=== PATIENT | female | born 1930 | race Caucasian/White ===

== ENCOUNTER → 2016-12-27 | Outpatient (CLI) | payer MEDICARE, OTHER ==
[~2016-12-27] MED LIST: ASPIRIN 32325 MG/TAB PO; ASPIRIN E.C. 8181 MG PO; ATIVAN 1MG T1 MG/TAB PO; CALCIUM + D 5001 TAB PO; CARDI-OMEGA1000 MG PO; CENTRUM SILVER1 CTB PO; COLACE100 MG/10 PO; COREG 6.256.25 MG/TA PO; DIOVAN80 MG PO; FLAX OIL1000 MG PO; IMDUR 60MG60 MG/TAB PO; KEPPRA 500MG500 MG PO; LIQUID CAL-600600 MG PO; LIVALO2 MG PO; LORAZEPAM0.5 MG PO; MULTI VITAMINS1 TAB PO; NIACIN500 M3 PO; NITROSTAT0.4 MG/TAB SL; NORVASC2.5 MG PO; OMEPRAZOLE DR20 MG PO; PLAVIX 75MG TAB75 MG PO; VITAMIN D3400 I1 PO; XALATAN EYE DROPS OU; ZANTAC 150MG T150 MG PO
== END ==
LOC: MC.RAD 12:47
DX: Z12.31 Encounter for screening mammogram for malignant neoplasm of breast (principal)

== ENCOUNTER 2017-05-14 10:58 | Emergency (ER) | payer MEDICARE, OTHER ==
[~2017-05-14] VITALS: Ht 152.4 cm; Wt 52.3 kg
[~2017-05-14 10:58] MED LIST changes: -KEPPRA 500MG500 MG PO; -MULTI VITAMINS1 TAB PO; -NORVASC2.5 MG PO; -VITAMIN D3400 I1 PO
[2017-05-14 10:59] VITALS: TEMP 97.8
[2017-05-14] MEDS ORDERED: NORVASC2.5 MG PO (11:26)
[2017-05-14 13:04] LABS: BASO # 0.1 (0.0-0.2); BASO % 0.6 % (0.0-2.0); EOS # 0.2 (0.0-0.7); EOS % 2.7 % (0-4.0); GRAN # 5.9 (1.4-6.5); GRAN % 70.9 % (42.2-75.2); HEMATOCRIT 38.5 % (37.0-47.0); HEMOGLOBIN 13.2 g/dl (12.5-16.0); LYMPH # 1.4 (1.2-3.4); LYMPH % 17.1 % (20.0-51.0); MEAN CELL VOLUME 86 fl (80.0-100.0); MEAN CORPUSCULAR HEMOGLOBIN 30 pg (27.0-31.0); MEAN CORPUSCULAR HGB CONC 34 g/dl (33.0-37.0); MEAN PLATELET VOLUME 10.3 fl (7.4-10.4); MONO # 0.7 (0.1-0.6); MONO % 8.3 % (1.7-9.3); PLATELET COUNT 163 K/mm3 (130-400); RED BLOOD COUNT 4.48 M/mm3 (4.10-5.30); REDCELL DISTRIBUTION WIDTH-CV 13.9 % (11.5-14.5); WHITE BLOOD COUNT 8.3 K/mm3 (4.8-10.8)
[2017-05-14 13:15] LABS: PROTHROMBIN TIME 11.3 SECONDS (9.7-12.8)
[2017-05-14 13:23] LABS: ADJUSTED CALCIUM 9.4 mg/dL (8.4-10.2); ALBUMIN 4.5 gm/dL (3.5-5.0); BILIRUBIN,TOTAL 0.9 mg/dL (0.0-1.0); CALCIUM 9.8 mg/dL (8.4-10.2); CREATININE, serum 1.24 mg/dL (0.52-1.25); POTASSIUM 4.7 mmol/L (3.4-5.0); TOTAL PROTEIN 7.2 gm/dL (6.4-8.2)
[2017-05-14 13:55] VITALS: BP 186/93; PULSE 73
== END 2017-05-14 13:55 | disposition short-term general hospital (02) ==
LOC: COL.ER 10:58
PROVIDERS: Emergency Medicine
DX: S06.5X0A Traumatic subdural hemorrhage without loss of consciousness, initial encounter (principal); S72.115A Nondisplaced fracture of greater trochanter of left femur, initial encounter for closed fracture; S00.212A Abrasion of left eyelid and periocular area, initial encounter; S00.81XA Abrasion of other part of head, initial encounter; S60.212A Contusion of left wrist, initial encounter; I25.10 Atherosclerotic heart disease of native coronary artery without angina pectoris; Z95.1 Presence of aortocoronary bypass graft; I25.2 Old myocardial infarction; W10.8XXA Fall (on) (from) other stairs and steps, initial encounter; Y92.511 Restaurant or cafe as the place of occurrence of the external cause; Z79.02 Long term (current) use of antithrombotics/antiplatelets; E11.9 Type 2 diabetes mellitus without complications; Z79.82 Long term (current) use of aspirin; Z23 Encounter for immunization
CPT/HCPCS: J2405; J3010; J7040

== ENCOUNTER 2017-06-25 10:19 | Emergency (ER) | payer MEDICARE, OTHER ==
[~2017-06-25] VITALS: Ht 152.4 cm; Wt 49.1 kg
[~2017-06-25 10:19] MED LIST changes: +NORVASC2.5 MG PO
[2017-06-25] MEDS ORDERED: MULTI VITAMINS1 TAB PO (11:05)
[2017-06-25] MEDS ORDERED: VITAMIN D3400 I1 PO (11:34)
[2017-06-25] MEDS ORDERED: KEPPRA 500MG500 MG PO (11:35)
[2017-06-25 11:38] LABS: PH 7 (5-8); SQUAMOUS EPITHELIAL 0-2 /hpf; URINE APPEARANCE Clear; URINE BACTERIA None Seen /hpf; URINE BILIRUBIN Negative (NEGATIVE); URINE BLOOD Negative (NEGATIVE); URINE COLOR Yellow; URINE GLUCOSE Negative (NEGATIVE); URINE KETONE Negative (NEGATIVE); URINE RBC 0-2 /hpf; URINE UROBILINOGEN Negative (NEGATIVE); URINE WBC 0-2 /hpf
[2017-06-25 12:07] LABS: BASO % 0.5 % (0.0-2.0); EOS # 0.2 (0.0-0.7); EOS % 2.9 % (0-4.0); GRAN # 3.6 (1.4-6.5); GRAN % 61.4 % (42.2-75.2); HEMOGLOBIN 12.4 g/dl (12.5-16.0); LYMPH # 1.5 (1.2-3.4); LYMPH % 25.3 % (20.0-51.0); MEAN CELL VOLUME 86 fl (80.0-100.0); MEAN CORPUSCULAR HEMOGLOBIN 29 pg (27.0-31.0); MEAN CORPUSCULAR HGB CONC 34 g/dl (33.0-37.0); MEAN PLATELET VOLUME 10.5 fl (7.4-10.4); MONO # 0.5 (0.1-0.6); MONO % 9.2 % (1.7-9.3); PLATELET COUNT 191 K/mm3 (130-400); REDCELL DISTRIBUTION WIDTH-CV 15.4 % (11.5-14.5); WHITE BLOOD COUNT 5.8 K/mm3 (4.8-10.8)
[2017-06-25 12:08] LABS: PROTHROMBIN TIME 11.2 SECONDS (9.7-12.8)
[2017-06-25 12:10] LABS: PARTIAL THROMBOPLASTIN TIME 31.1 SECONDS (26.0-37.0)
[2017-06-25 12:15] LABS: ADJUSTED CALCIUM 9.6 mg/dL (8.4-10.2); ALANINE AMINOTRANSFERASE 24 U/L (9-52); ALBUMIN 4.4 gm/dL (3.5-5.0); ALKALINE PHOSPHATASE 58 U/L (50-136); ANION GAP 11 mmol/L (7-16); BILIRUBIN,TOTAL 0.8 mg/dL (0.0-1.0); BLOOD UREA NITROGEN 12 mg/dL (7-17); CALCIUM 9.9 mg/dL (8.4-10.2); CARBON DIOXIDE 24 mmol/L (22-30); CHLORIDE 97 mmol/L (98-107); CREATININE, serum 0.89 mg/dL (0.52-1.25); GLUCOSE 103 mg/dL (74-106); POTASSIUM 4.3 mmol/L (3.4-5.0); SODIUM 131 mmol/L (137-145); TOTAL PROTEIN 7.2 gm/dL (6.4-8.2)
[2017-06-25 12:26] LABS: B-TYPE NATRIURETIC PEPTIDE 964 pg/mL (0-450); TROPONIN-I < 0.012 ng/mL (0.000-0.034)
[2017-06-25 13:25] VITALS: BP 146/125; PULSE 97; TEMP 97
== END 2017-06-25 13:35 | disposition short-term general hospital (02) ==
LOC: COL.ER 10:19
PROVIDERS: Emergency Medicine
DX: I62.01 Nontraumatic acute subdural hemorrhage (principal); R07.89 Other chest pain; I25.10 Atherosclerotic heart disease of native coronary artery without angina pectoris; R07.9 Chest pain, unspecified; I10 Essential (primary) hypertension; Z79.02 Long term (current) use of antithrombotics/antiplatelets; S06.5X0D Traumatic subdural hemorrhage without loss of consciousness, subsequent encounter; X58.XXXD Exposure to other specified factors, subsequent encounter
CPT/HCPCS: J1953; J7050; P9035

== ENCOUNTER → 2017-10-10 | Outpatient (CLI) | payer MEDICARE, OTHER ==
[~2017-10-10] MED LIST changes: +KEPPRA 500MG500 MG PO; +MULTI VITAMINS1 TAB PO; +VITAMIN D3400 I1 PO
== END ==
LOC: COL.CARD 08:14
DX: R55 Syncope and collapse (principal); Z53.9 Procedure and treatment not carried out, unspecified reason

== ENCOUNTER → 2018-02-16 | Outpatient (CLI) | payer MEDICARE, OTHER | LOC: MC.RAD 10:43 | DX: Z12.31 Encounter for screening mammogram for malignant neoplasm of breast (principal) ==

== ENCOUNTER 2018-10-22 04:13 | Emergency (ER) | payer MEDICARE, OTHER ==
[~2018-10-22] VITALS: Ht 152.4 cm; Wt 51.4 kg
[2018-10-22 04:15] VITALS: TEMP 97.8
[2018-10-22 04:37] LABS: BASO # 0.1 (0.0-0.2); BASO % 0.8 % (0.0-2.0); EOS # 0.2 (0.0-0.7); EOS % 3.4 % (0-4.0); GRAN # 3.6 (1.4-6.5); GRAN % 55.1 % (42.2-75.2); HEMOGLOBIN 13.8 g/dl (12.5-16.0); LYMPH # 1.8 (1.2-3.4); MEAN CELL VOLUME 91 fl (80.0-100.0); MEAN CORPUSCULAR HEMOGLOBIN 31 pg (27.0-31.0); MEAN CORPUSCULAR HGB CONC 35 g/dl (33.0-37.0); MEAN PLATELET VOLUME 9.6 fl (7.4-10.4); MONO # 0.8 (0.1-0.6); MONO % 12.2 % (1.7-9.3); PLATELET COUNT 147 K/mm3 (130-400); RED BLOOD COUNT 4.42 M/mm3 (4.10-5.30); REDCELL DISTRIBUTION WIDTH-CV 13.2 % (11.5-14.5)
[2018-10-22 04:44] LABS: PROTHROMBIN TIME 11.1 SECONDS (9.7-12.8)
[2018-10-22 04:47] LABS: PARTIAL THROMBOPLASTIN TIME 31.4 SECONDS (26.0-37.0)
[2018-10-22 04:48] LABS: CALCIUM 10.1 mg/dL (8.4-10.2); CREATININE, serum 1.03 mg/dL (0.52-1.25); POTASSIUM 4.2 mmol/L (3.4-5.0)
[2018-10-22] MEDS ORDERED: AMOXICILLIN 50500 MG PO (04:50)
[2018-10-22 05:58] VITALS: BP 175/96; PULSE 75
== END 2018-10-22 05:59 | disposition home or self-care (01) ==
LOC: COL.ER 04:13
PROVIDERS: Emergency Medicine
DX: S09.90XA Unspecified injury of head, initial encounter (principal); S00.03XA Contusion of scalp, initial encounter; I25.10 Atherosclerotic heart disease of native coronary artery without angina pectoris; Z79.02 Long term (current) use of antithrombotics/antiplatelets; W18.39XA Other fall on same level, initial encounter; W22.8XXA Striking against or struck by other objects, initial encounter

== ENCOUNTER 2019-06-02 23:30 | Observation (INO) | payer MEDICARE, OTHER ==
[~2019-06-02] VITALS: Ht 152.4 cm; Wt 50.9 kg
[~2019-06-02 23:30] MED LIST changes: +AMOXICILLIN 50500 MG PO
[2019-06-02] MEDS ORDERED: VITAMIN D31000 I1 PO (23:42)
[2019-06-02] MEDS ORDERED: ZANTAC 7575 MG PO (23:42)
[2019-06-02] MEDS ORDERED: OMEGA-3 1000 MG1 CAP PO (23:42)
[2019-06-03] VITALS (7 sets, daily range): BP systolic 114–187; BP diastolic 42–76; PULSE 62–73; TEMP 97.4–98.3
[2019-06-03 00:07] LABS: BASO # 0.1 (0.0-0.2); BASO % 0.7 % (0.0-2.0); EOS # 0.4 (0.0-0.7); EOS % 4.5 % (0-4.0); GRAN # 6.3 (1.4-6.5); GRAN % 71.9 % (42.2-75.2); HEMOGLOBIN 12.9 g/dl (12.5-16.0); LYMPH # 1.5 (1.2-3.4); LYMPH % 16.7 % (20.0-51.0); MEAN CELL VOLUME 86 fl (80.0-100.0); MEAN CORPUSCULAR HEMOGLOBIN 31 pg (27.0-31.0); MEAN CORPUSCULAR HGB CONC 36 g/dl (33.0-37.0); MEAN PLATELET VOLUME 8.8 fl (7.4-10.4); MONO # 0.5 (0.1-0.6); MONO % 5.6 % (1.7-9.3); PLATELET COUNT 152 K/mm3 (130-400); REDCELL DISTRIBUTION WIDTH-CV 12.7 % (11.5-14.5)
[2019-06-03 00:19] LABS: ALBUMIN 3.9 gm/dL (3.5-5.0); BILIRUBIN,TOTAL 0.6 mg/dL (0.0-1.0); CALCIUM 9.4 mg/dL (8.4-10.2); CREATININE, serum 0.86 (0.52-1.25); POTASSIUM 4.6 mmol/L (3.4-5.0); TOTAL PROTEIN 6.5 gm/dL (6.4-8.2)
[2019-06-03 00:46] LABS: PROTHROMBIN TIME 11.2 SECONDS (9.7-12.8)
[2019-06-03 02:36] LABS: COLLECTION METHOD CLEAN CATCH
[2019-06-03 02:51] LABS: PH 7 (5-8); SQUAMOUS EPITHELIAL 0-2 /hpf; URINE APPEARANCE Clear; URINE BACTERIA None Seen /hpf; URINE BILIRUBIN Negative (NEGATIVE); URINE BLOOD Negative (NEGATIVE); URINE COLOR Straw; URINE GLUCOSE Negative (NEGATIVE); URINE KETONE Negative (NEGATIVE); URINE LEUKOCYTE ESTERASE Negative (NEGATIVE); URINE NITRATE Negative (NEGATIVE); URINE PROTEIN(semi-quant) Negative (NEGATIVE); URINE RBC 0-2 /hpf; URINE UROBILINOGEN Negative (NEGATIVE)
--- NOTE | 2019-06-03 03:49 | NUR ---
PT TO RM 359 PER W/C WITH ER STAFF. ALERT AND ORIENTATED. DENIES PAIN. AMBULATES TO BR WITH SBA. VOIDED AND THEN TO BED. REQUESTING HER ATIVAN FOR SLEEP. INT IN L AC. CALL LIGHT IN REACH.
--- NOTE | 2019-06-03 06:08 | NUR ---
Pt up to BR. Steady gait. C/O back neck pain. States she usually takes Tylenol. Pain rated 4/10. IVF cont to infuse at 125mL/hr in L AC. Call light in reach.
[2019-06-03 07:35] LABS: BASO % 0.6 % (0.0-2.0); EOS # 0.3 (0.0-0.7); EOS % 4.8 % (0-4.0); GRAN # 3.5 (1.4-6.5); GRAN % 56.9 % (42.2-75.2); HEMOGLOBIN 12.3 g/dl (12.5-16.0); LYMPH # 1.7 (1.2-3.4); LYMPH % 27.8 % (20.0-51.0); MEAN CELL VOLUME 88 fl (80.0-100.0); MEAN CORPUSCULAR HEMOGLOBIN 31 pg (27.0-31.0); MEAN CORPUSCULAR HGB CONC 35 g/dl (33.0-37.0); MEAN PLATELET VOLUME 9.7 fl (7.4-10.4); MONO # 0.6 (0.1-0.6); MONO % 9.1 % (1.7-9.3); PLATELET COUNT 144 K/mm3 (130-400); RED BLOOD COUNT 4.01 M/mm3 (4.10-5.30); REDCELL DISTRIBUTION WIDTH-CV 12.9 % (11.5-14.5)
[2019-06-03 07:37] LABS: HEMATOCRIT 35.1 % (37.0-47.0)
[2019-06-03 07:41] LABS: CALCIUM 9.1 mg/dL (8.4-10.2); CREATININE, serum 0.82 (0.52-1.25); POTASSIUM 4.6 mmol/L (3.4-5.0)
--- NOTE | 2019-06-03 08:30 | NUR ---
Pt lying in bed, AAOx3, denies dizziness or shortness of breath. C/O pain 3/10 to neck muscle, says that is normal for her. Completed morning assessment. Pt has fluids going at 125ml/hr. Sodium up to 132 this AM. Will follow up with Dr. Singh. Breakfast tray ordered for pt, taught pt about free water restriction. Denies any other needs at this time. Call light in reach.
[2019-06-03 09:08] LABS: CHOLESTEROL RISK RATIO 3.5
--- NOTE | 2019-06-03 15:05 | NUR ---
Pt lying in bed, breathing even and unlabored. Pt requested tylenol, spoke with Silvia SMITH. Pt states she would like to take it in a couple hours. Will follow up. Call light in reach.
--- NOTE | 2019-06-03 15:09 | NUR ---
ADAM met with the patient to discuss discharge plan. The patient lives in [place]. She states her daughter, Shannon, lives in the basement of her house. She reports independence with ADLs and does not have any DME. The patient's PCP is Dr. Cat Gipson and she receives her medications at [facility]. She reports no difficulties obtaining her meds. The patient does not have advanced directives in EMR, but she states that she does have them completed and at home. She states her son, Dayton, is her DPOA-HC. The patient plans to return home upon discharge. No additional needs at this time.
--- NOTE | 2019-06-03 21:00 | NUR ---
PT IN ROOM AMBULATES TO BATHROOM AND BACK TO BED WITHOUT ASSISTANCE, BUT GAIT STEADY. PT A/O X4, AND DRINKING GATORAID AND SUPPLEMENT. PT DENIES PAIN OR DISCOMFORT AND HAS NO NEEDS AT THIS TIME. CALL LIGHT WITHIN REACH.
[2019-06-04 03:42] VITALS: BP 148/60; PULSE 73; TEMP 97.6
--- NOTE | 2019-06-04 07:09 | NUR ---
PT SLEPT/RESTED WELL DURING THE NIGHT. WHEN PT WAS AWAKENED SHE DENIED PAIN OR DISCOMFORT AND WAS ABLE TO DRIFT BACK TO SLEEP. NO NEEDS AND CALL LIGHT WITHIN REACH. CARE TRANSFERED OVER TO LUCI ROY.
[2019-06-04 07:20] VITALS: BP 155/63; PULSE 68; TEMP 97.6
[2019-06-04 08:07] LABS: CALCIUM 9.1 mg/dL (8.4-10.2); CREATININE, serum 0.87 (0.52-1.25); POTASSIUM 4.4 mmol/L (3.4-5.0)
--- NOTE | 2019-06-04 12:41 | NUR ---
Pt sitting up in bed watching TV upon entry, some C/O minor pain, medications given for relief, shift assessments complete, left Pt call light in reach, bed in lowest position.
--- NOTE | 2019-06-04 19:15 | NUR ---
Pt discharged to home, waiting on transport from family.
== END 2019-06-04 19:33 | disposition home or self-care (01) ==
LOC: COL.ER 23:30 → MEDICAL 06-03 00:46
PROVIDERS: Emergency Medicine; Nurse Practitioner; Nurse Practitioner Family; ADMIT Hospitalist
DX: E87.1 Hypo-osmolality and hyponatremia (principal); E78.5 Hyperlipidemia, unspecified; I73.9 Peripheral vascular disease, unspecified; I25.10 Atherosclerotic heart disease of native coronary artery without angina pectoris; I12.9 Hypertensive chronic kidney disease with stage 1 through stage 4 chronic kidney disease, or unspecified chronic kidney disease; E11.22 Type 2 diabetes mellitus with diabetic chronic kidney disease; N18.3 Chronic kidney disease, stage 3 (moderate); I70.1 Atherosclerosis of renal artery; Z79.02 Long term (current) use of antithrombotics/antiplatelets; Z95.1 Presence of aortocoronary bypass graft; Z95.5 Presence of coronary angioplasty implant and graft; Z88.8 Allergy status to other drugs, medicaments and biological substances
CPT/HCPCS: 99239; G0378; J1644; J7030

== ENCOUNTER 2019-06-17 17:04 | Inpatient (IN) | payer MEDICARE, OTHER ==
[~2019-06-17] VITALS: Ht 152.4 cm; Wt 46.4 kg
[~2019-06-17 17:04] MED LIST changes: +OMEGA-3 1000 MG1 CAP PO; +VITAMIN D31000 I1 PO; +ZANTAC 7575 MG PO
[2019-06-17] MEDS ORDERED: CLEOCIN HCL300 MG PO (17:19)
[2019-06-17] MEDS ORDERED: ZOFRAN ODT8 MG PO (17:20)
[2019-06-17 17:23] LABS: COLLECTION METHOD CLEAN CATCH
[2019-06-17 17:41] LABS: PH 8 (5-8); SQUAMOUS EPITHELIAL None Seen /hpf; URINE APPEARANCE Clear; URINE BACTERIA None Seen /hpf; URINE BILIRUBIN Negative (NEGATIVE); URINE BLOOD Negative (NEGATIVE); URINE COLOR Straw; URINE GLUCOSE Negative (NEGATIVE); URINE KETONE Negative (NEGATIVE); URINE LEUKOCYTE ESTERASE Negative (NEGATIVE); URINE NITRATE Negative (NEGATIVE); URINE PROTEIN(semi-quant) Negative (NEGATIVE); URINE RBC 0-2 /hpf; URINE UROBILINOGEN Negative (NEGATIVE)
[2019-06-17 18:08] LABS: BASO % 0.4 % (0.0-2.0); EOS # 0.1 (0.0-0.7); GRAN # 4.7 (1.4-6.5); GRAN % 67.6 % (42.2-75.2); HEMATOCRIT 40.9 % (37.0-47.0); HEMOGLOBIN 14.5 g/dl (12.5-16.0); LYMPH # 1.4 (1.2-3.4); LYMPH % 20.3 % (20.0-51.0); MEAN CELL VOLUME 85 fl (80.0-100.0); MEAN CORPUSCULAR HEMOGLOBIN 30 pg (27.0-31.0); MEAN CORPUSCULAR HGB CONC 36 g/dl (33.0-37.0); MEAN PLATELET VOLUME 9.6 fl (7.4-10.4); MONO # 0.6 (0.1-0.6); MONO % 9.3 % (1.7-9.3); PLATELET COUNT 187 K/mm3 (130-400); RED BLOOD COUNT 4.79 M/mm3 (4.10-5.30); REDCELL DISTRIBUTION WIDTH-CV 12.8 % (11.5-14.5)
[2019-06-17 18:12] LABS: PROTHROMBIN TIME 11.5 SECONDS (9.7-12.8)
[2019-06-17 18:19] LABS: ALANINE AMINOTRANSFERASE 20 U/L (9-52); ALBUMIN 4.6 gm/dL (3.5-5.0); ALKALINE PHOSPHATASE 58 U/L (50-136); ANION GAP 13 mmol/L (7-16); AST,SGOT 28 U/L (15-37); BILIRUBIN,TOTAL 0.8 mg/dL (0.0-1.0); BLOOD UREA NITROGEN 12 mg/dL (7-17); CALCIUM 10.1 mg/dL (8.4-10.2); CARBON DIOXIDE 22 mmol/L (22-30); CHLORIDE 93 mmol/L (98-107); CREATINE KINASE 46 U/L (30-135); CREATININE, serum 0.79 (0.52-1.25); GLUCOSE 115 mg/dL (74-106); POTASSIUM 4.4 mmol/L (3.4-5.0); SODIUM 128 mmol/L (137-145); TOTAL PROTEIN 7.7 gm/dL (6.4-8.2)
[2019-06-17 18:22] LABS: C-REACTIVE PROTEIN < 0.5 mg/dL (0.0-0.9)
[2019-06-17 18:37] LABS: TROPONIN-I < 0.012 ng/mL (0.000-0.035)
[2019-06-17 20:01] VITALS: BP 191/76; PULSE 81; TEMP 97.5
--- NOTE | 2019-06-17 21:15 | NUR ---
Admitted from ER to medical floor with hyponatremia/weakness. Nauseated- will give Zofran - Terri SUMMER notified of B/P 215/--states she will put in orders/home meds. Up to BSC with assist- voiding without problems, IV fluids of NS at 125cc/hr
[2019-06-17 21:34] VITALS: BP 215/88
[2019-06-17] MEDS ORDERED: LEXAPRO 10MG10 MG PO (22:06)
--- NOTE | 2019-06-17 22:45 | NUR ---
Was able to take her night meds, prn apresoline for B/P 215/88, and given Ativan for anxiety- Up to BSC, voiding well. Bed alarm on, steady on feet,
[2019-06-17 23:39] VITALS: BP 112/75; PULSE 82; TEMP 97.8
[2019-06-18 03:40] VITALS: BP 151/68; PULSE 83; TEMP 98.2
--- NOTE | 2019-06-18 05:58 | NUR ---
Has been resting well for the past 4-5 hours- states nausea is much better, IV fluids continue NS at 125cc/hr. B/P stable
[2019-06-18 07:34] LABS: BASO % 0.3 % (0.0-2.0); EOS # 0.1 (0.0-0.7); GRAN % 66.1 % (42.2-75.2); HEMATOCRIT 40.2 % (37.0-47.0); HEMOGLOBIN 14.2 g/dl (12.5-16.0); LYMPH # 1.4 (1.2-3.4); LYMPH % 22.8 % (20.0-51.0); MEAN CELL VOLUME 86 fl (80.0-100.0); MEAN CORPUSCULAR HEMOGLOBIN 30 pg (27.0-31.0); MEAN CORPUSCULAR HGB CONC 35 g/dl (33.0-37.0); MEAN PLATELET VOLUME 9.8 fl (7.4-10.4); MONO # 0.6 (0.1-0.6); MONO % 9.5 % (1.7-9.3); PLATELET COUNT 181 K/mm3 (130-400); RED BLOOD COUNT 4.68 M/mm3 (4.10-5.30)
[2019-06-18 07:46] LABS: CALCIUM 9.4 mg/dL (8.4-10.2); CREATININE, serum 0.83 (0.52-1.25); POTASSIUM 4.1 mmol/L (3.4-5.0)
[2019-06-18 08:01] VITALS: BP 94/47; PULSE 72; TEMP 97.8
--- NOTE | 2019-06-18 11:08 | NUR ---
Initial visit; '"Nicki" thanked Staff Radiographer for looking in on her and assuring her that God's understands all about her and loves her. Nicki was recepitve to prayer and God's healing.
[2019-06-18 12:52] VITALS: BP 126/43; PULSE 73; TEMP 97.3
[2019-06-18 15:31] VITALS: BP 148/60; PULSE 62; TEMP 97.8
--- NOTE | 2019-06-18 15:46 | NUR ---
SW met with patient to discuss discharge planning. Patient lives independently at home. Patient reports her daughter lives in the basement of her house but her daughter does not help patient very much at home. Patient's PCP is Dr Gipson and she obtains prescriptions from [facility]. Patient does not use any DME or home health services. SW explained that benefits of home health but patient is not interested in utilizing those services. Patient does have a DPOA. SW does not anticipate any discharg needs but will continue to follow.
[2019-06-18 18:27] LABS: CALCIUM 9.1 mg/dL (8.4-10.2); CREATININE, serum 0.88 (0.52-1.25); POTASSIUM 4.1 mmol/L (3.4-5.0)
[2019-06-18 20:12] VITALS: BP 185/85; PULSE 95; TEMP 98.4
--- NOTE | 2019-06-18 20:12 | NUR ---
Informed by the nurses aide that pt states she feel in the bathroom- states she hit her head on the wall- back to bed now , when we found her she was back sitting on toilet states she is mostly upset with herself for this happening,, slight bump noted to right side of head- pt states she was trying to clean up some loose stool that was on the floor , VSS, no other signs of any injuries- denies pain, neuros WNL
--- NOTE | 2019-06-18 20:45 | NUR ---
Terri UNIVERSITY LIBRARIAN notified of fall- Fall precautions initiated, neuros every 2 hours- pt denies any pain
[2019-06-18 20:50] VITALS: BP 162/61
[2019-06-19] VITALS (7 sets, daily range): BP systolic 129–183; BP diastolic 52–80; PULSE 67–75; TEMP 97.7–98.7
--- NOTE | 2019-06-19 06:44 | NUR ---
Did sleep well last night- No more loose stool since beginning of shift- denies pain, neuros WNL,
[2019-06-19 06:48] LABS: BASO % 0.7 % (0.0-2.0); EOS # 0.1 (0.0-0.7); EOS % 2.4 % (0-4.0); GRAN # 3.1 (1.4-6.5); GRAN % 56.8 % (42.2-75.2); HEMOGLOBIN 12.5 g/dl (12.5-16.0); LYMPH # 1.5 (1.2-3.4); LYMPH % 27.4 % (20.0-51.0); MEAN CELL VOLUME 86 fl (80.0-100.0); MEAN CORPUSCULAR HEMOGLOBIN 30 pg (27.0-31.0); MEAN CORPUSCULAR HGB CONC 35 g/dl (33.0-37.0); MEAN PLATELET VOLUME 9.5 fl (7.4-10.4); MONO # 0.7 (0.1-0.6); PLATELET COUNT 159 K/mm3 (130-400); RED BLOOD COUNT 4.15 M/mm3 (4.10-5.30); REDCELL DISTRIBUTION WIDTH-CV 13.1 % (11.5-14.5)
[2019-06-19 06:57] LABS: HEMATOCRIT 35.8 % (37.0-47.0)
[2019-06-19 07:01] LABS: CALCIUM 8.9 mg/dL (8.4-10.2); CREATININE, serum 0.84 (0.52-1.25)
--- NOTE | 2019-06-19 08:04 | NUR ---
PATIENT ASSESSMENT COMPLETED. SHE DENIES ANY PAIN OR NEEDS. THINKS SHE WOULD LIKE TO GO HOME TODAY. IS ABLE TO EAT BREAKFAST. ASSISTANCE TO THE RESTROOM PROVIDED. BED ALARM ON.
--- NOTE | 2019-06-19 11:00 | NUR ---
PATIENT IS UP IN THE CHAIR. SHE DENIES NEEDS AT THIS TIME.
--- NOTE | 2019-06-19 12:06 | NUR ---
COREG DOSE GIVEN AT THIS TIME PER EZE NAVAS. WAS HELD THIS MORNING DUE TO LOW BP.
--- NOTE | 2019-06-19 12:45 | NUR ---
SW spoke with patient on HHS. Patient was presented with the [email or web address] HHS form. Patient chose [facility].
--- NOTE | 2019-06-19 15:34 | NUR ---
PATIENT CONTINUES TO BE UP IN THE CHAIR. SHE DENIES NEEDS AT THIS TIME
--- NOTE | 2019-06-19 17:29 | NUR ---
YOSEF MARQUES NOTIFIED OF BP AND TYLENOL ORDER. SHE WILL UPDATE JAN.
--- NOTE | 2019-06-19 17:33 | NUR ---
PATIENT IS GIVEN 1000MG TYLENOL AT THIS TIME SHE WAS TAKING AT HOME
--- NOTE | 2019-06-19 19:05 | NUR ---
Report received from Mckenna ROY. Pt sitting in chair. No distress noted. Pt denies needs at this time.
--- NOTE | 2019-06-19 20:39 | NUR ---
Pt is up to chair. No distress noted. Pt denies pain at this time. Pt states that Tylenol she took earlier "took care of the pain". Respirations are even and unlabored. Lungs clear. Abdomen soft, nontender. BS+. Pt denies any diarrhea since last night. Pt is aware that we need to collect stool sample. Pt thinks the diarrhea was caused by Glucerna supplement, so she is not drinking those. She did have a milkshake with dinner that she drank 100% of. Pt is A&O. No neurological deficits noted. R AC INT intact. HS meds given. Pt denies needs at this time. Will continue to monitor.
--- NOTE | 2019-06-19 22:00 | NUR ---
Pt requests PRN Ativan. She states that she takes it nightly at home.
[2019-06-20 03:13] VITALS: BP 204/85; PULSE 78; TEMP 97.5
--- NOTE | 2019-06-20 03:20 | NUR ---
Pts blood pressure is elevated at 204/85. Terri QUALITY ASSURANCE MONITOR BODY called. No new orders received due to patients blood pressure getting low during the day shift. Will continue to monitor.
--- NOTE | 2019-06-20 05:28 | NUR ---
Pt c/o pain in mouth this AM. Tylenol given. Pt denies further needs. She has rested well throughout the night without complaints.
--- NOTE | 2019-06-20 06:50 | NUR ---
Report given to Mckenna ROY.
[2019-06-20 07:13] VITALS: BP 124/62; PULSE 64; TEMP 98.1
[2019-06-20 07:24] LABS: CALCIUM 9.3 mg/dL (8.4-10.2); CREATININE, serum 0.84 (0.52-1.25); POTASSIUM 4.2 mmol/L (3.4-5.0)
--- NOTE | 2019-06-20 08:42 | NUR ---
PATIENT ASSISTED TO THE RESTROOM THEN TO THE CHAIR FOR BREAKFAST. SHE REPORTS THE MOUTH PAIN IS GONE RIGHT NOW. WILL MONITOR FOR NEEDS
[2019-06-20 12:19] VITALS: BP 148/56; PULSE 60; TEMP 98.2
[2019-06-20 16:28] VITALS: BP 168/66; PULSE 66; TEMP 98
--- NOTE | 2019-06-20 19:00 | NUR ---
Report received from Mckenna ROY. Pt up to chair. Denies needs. Pt is high fall risk due to previous fall. Call light in reach. will continue to monitor.
[2019-06-20 19:17] VITALS: BP 169/62; PULSE 66; TEMP 98.2
--- NOTE | 2019-06-20 19:58 | NUR ---
Pt resting in bed after getting up to the bathroom from chair. Respirations even and unlabored. Lungs clear. Abdomen soft, nontender. BS+. No edema noted. Pedal pulses equal-2+. IVF infusing to RF IV site. Pt states that she is afraid she will "knock it loose". IV site secured with Koban. Blood pressure is slightly elevated, but that has been her baseline. Pt c/o pain 4/10 in mouth. PRN Tylenol given. Pt denies further needs at this time. Will continue to monitor.
[2019-06-20 23:58] VITALS: BP 110/94; PULSE 63; TEMP 97.7
[2019-06-21 04:38] VITALS: BP 171/76; PULSE 74; TEMP 98.1
[2019-06-21 06:21] LABS: CALCIUM 8.9 mg/dL (8.4-10.2); CREATININE, serum 0.87 (0.52-1.25); POTASSIUM 4.1 mmol/L (3.4-5.0)
--- NOTE | 2019-06-21 06:36 | NUR ---
Pt sleeping this AM, but easily arousable. No distress noted. Pt denies pain at this time. Pt states she slept well. Up to the bathroom multiple times throughout the night.
--- NOTE | 2019-06-21 07:24 | NUR ---
Report given to Noman ROY. Pt resting. Denies needs.
[2019-06-21 07:33] VITALS: BP 153/62; PULSE 66; TEMP 97.7
--- NOTE | 2019-06-21 08:27 | NUR ---
Assessment completed, alert/oriented, vital signs stable, continues to report discomfort in her mouth/jaw, her Na+ is up to 134 this morning, heart RRR, lungs CTA, she is sitting up eating breakfast at this time, dischage planning and have recommedned oral surgeon follow up, patient is not willing to travel very far for this/ however we have explained that we do not have any local Oral sx that accept medicare, patient understands this, hoping to discharge home today, denies other needs at this time
--- NOTE | 2019-06-21 10:53 | NUR ---
SW met with patient to present IM and verbally discuss the contents. Patient was agreeable and signed the form. SHe denied a copy and the original was placed on the chart. Patient reports that someone gave her a list of oral surgeons yesterday but she lost it. SW put together a new list for her of oral surgeons in [place], [place], [place], and . ADAM also discussed the option of [facility] clinic and Care credit and provided a number to apply as she doesnt have dental insurance. ADAM called Yessenia at [facility] to inform of dc and need to see an oral surgeon. Will fax dc when obtained.
--- NOTE | 2019-06-21 11:12 | NUR ---
ADAM faxed discharge to [facility]. Patient is dc home with HH provided by [facility].
--- NOTE | 2019-06-21 14:54 | NUR ---
Discharge instructions reviewed with the patient, instructed to follow up with PCP and ENT as scheduled, instructed to get referral for Oral surgeon/ provided patient with contact info for multiple services in [place], instructed to stop taking any antibiotics she was previously on, instructed to limit free water intake and drink juice and other sports drink to prevent sodium levels from dropping again, IV removed, leaving with her daughter, ANDREA escorted them out
== END 2019-06-21 14:57 | disposition home or self-care (01) | DRG 644 ==
LOC: COL.ER 17:04 → MEDICAL 19:00
PROVIDERS: Emergency Medicine; Nurse Practitioner; Nurse Practitioner Family; ADMIT Hospitalist
DX: E22.2 Syndrome of inappropriate secretion of antidiuretic hormone (principal); K52.1 Toxic gastroenteritis and colitis; E44.0 Moderate protein-calorie malnutrition; I12.9 Hypertensive chronic kidney disease with stage 1 through stage 4 chronic kidney disease, or unspecified chronic kidney disease; N18.3 Chronic kidney disease, stage 3 (moderate); E11.22 Type 2 diabetes mellitus with diabetic chronic kidney disease; E11.51 Type 2 diabetes mellitus with diabetic peripheral angiopathy without gangrene; E78.5 Hyperlipidemia, unspecified; I25.10 Atherosclerotic heart disease of native coronary artery without angina pectoris; E86.0 Dehydration; T36.8X5A Adverse effect of other systemic antibiotics, initial encounter; K13.70 Unspecified lesions of oral mucosa; F41.9 Anxiety disorder, unspecified; I95.9 Hypotension, unspecified; Z95.1 Presence of aortocoronary bypass graft; Z95.5 Presence of coronary angioplasty implant and graft; Z79.02 Long term (current) use of antithrombotics/antiplatelets; Z88.8 Allergy status to other drugs, medicaments and biological substances; I70.1 Atherosclerosis of renal artery
CPT/HCPCS: OP; 99232-AI; 99239; G0378; J0360; J2405; J7030

== ENCOUNTER 2021-09-28 19:47 | Inpatient (IN) | payer MEDICARE, OTHER ==
[~2021-09-28] VITALS: Ht 149.9 cm; Wt 61.9 kg
[~2021-09-28 19:47] MED LIST changes: +CLEOCIN HCL300 MG PO; +LEXAPRO 10MG10 MG PO; +ZOFRAN ODT8 MG PO
[2021-09-28 21:57] LABS: BASO # 0.1 K/mm3 (0.0-0.2); BASO % 0.9 % (0.0-2.0); EOS # 0.2 K/mm3 (0.0-0.7); GRAN # 3.8 K/mm3 (1.4-6.5); GRAN % 59.6 % (42.2-75.2); HEMATOCRIT 45.2 % (37.0-47.0); HEMOGLOBIN 15.6 g/dl (12.5-16.0); LYMPH # 1.8 K/mm3 (1.2-3.4); LYMPH % 28.1 % (20.0-51.0); MEAN CELL VOLUME 89 fl (80.0-100.0); MEAN CORPUSCULAR HEMOGLOBIN 31 pg (27.0-31.0); MEAN CORPUSCULAR HGB CONC 35 g/dl (33.0-37.0); MEAN PLATELET VOLUME 9.9 fl (7.4-10.4); MONO # 0.5 K/mm3 (0.1-0.6); MONO % 7.8 % (1.7-9.3); PLATELET COUNT 198 K/mm3 (130-400); RED BLOOD COUNT 5.07 M/mm3 (4.10-5.30); REDCELL DISTRIBUTION WIDTH-CV 13.9 % (11.5-14.5)
[2021-09-28 23:01] LABS: ALBUMIN 4.1 gm/dL (3.4-4.8); BILIRUBIN,TOTAL 0.7 mg/dL (0.2-1.2); CALCIUM 9.9 mg/dL (8.4-10.2); CREATININE, serum 1.29 mg/dL (0.57-1.11); TOTAL PROTEIN 7.4 gm/dL (6.2-8.1)
[2021-09-28 23:08] LABS: TROPONIN-I 0.034 ng/mL (0.00-0.033)
[2021-09-28 23:17] LABS: COLLECTION METHOD CATHETER
[2021-09-28 23:26] LABS: MUCOUS Present /lpf; PH 7 (5-8); SQUAMOUS EPITHELIAL 0-2 /hpf; URINE APPEARANCE Clear; URINE BACTERIA None Seen /hpf; URINE BILIRUBIN Negative (NEGATIVE); URINE BLOOD Negative (NEGATIVE); URINE COLOR Straw; URINE GLUCOSE Negative (NEGATIVE); URINE KETONE Negative (NEGATIVE); URINE LEUKOCYTE ESTERASE Negative (NEGATIVE); URINE NITRATE Negative (NEGATIVE); URINE PROTEIN(semi-quant) Negative (NEGATIVE); URINE RBC None Seen /hpf; URINE UROBILINOGEN Negative (NEGATIVE)
[2021-09-29] VITALS (353 sets, daily range): BP systolic 110–190; BP diastolic 58–108; PULSE 72–102; TEMP 97.4–98.5; O2SAT 89–99
--- NOTE | 2021-09-29 01:30 | NUR ---
PT RECIEVED FROM ED VIA STRETCHER. TRANSFERRED TO ICU BED AND MONITORING. PT ALERT AND ORIENTED TIMES 4, DENIES PAIN BUT STATES GENERALIZED DISCOMFORT. HELPED TO POSITION AND ORIENTED TO ROOM AND CALL LIGHT. DAUGHTER LUCERO AT BEDSIDE WITH PT, STATES WILL CALL WITH HOME MEDICATION LIST WHEN ARRIVES BACK AT HOME THIS AM (LEAVING NOW AFTER SAYING GOODBYE TO PT). WILL CONTINUE TO MONITOR.
[2021-09-29] MEDS ORDERED: CENTRUM SILVER1 TAB PO (02:30)
[2021-09-29] MEDS ORDERED: APRESOLINE 25MG25 MG PO (02:30)
[2021-09-29] MEDS ORDERED: XALATAN EYE DROPS OD (02:31)
[2021-09-29] MEDS ORDERED: NITROSTAT0.4 MG/TAB SL (02:32)
[2021-09-29] MEDS ORDERED: ATIVAN 1MG T1 MG/TAB PO (02:32)
[2021-09-29] MEDS ORDERED: PROTONIX 40MG T40 MG PO (02:32)
[2021-09-29] MEDS ORDERED: ALDACTONE 25MG25 M1 PO (02:33)
[2021-09-29] MEDS ORDERED: ZOLOFT 50MG50 MG PO (02:33)
--- NOTE | 2021-09-29 10:43 | NUR ---
First visit from the lead scientist. No needs right now.
[2021-09-29] MEDS ORDERED: EPA FISH OIL1 SGL PO (14:34)
[2021-09-30 03:24] VITALS: BP 133/62; PULSE 77; TEMP 98.8
--- NOTE | 2021-09-30 05:02 | NUR ---
Patient care, medication administration and nursing documentation occurred during a Daylight Savings Time Change.
[2021-09-30 07:06] LABS: BASO # 0.1 K/mm3 (0.0-0.2); BASO % 0.6 % (0.0-2.0); EOS # 0.3 K/mm3 (0.0-0.7); EOS % 3.8 % (0-4.0); GRAN # 4.8 K/mm3 (1.4-6.5); GRAN % 54.5 % (42.2-75.2); HEMATOCRIT 40.8 % (37.0-47.0); HEMOGLOBIN 14.1 g/dl (12.5-16.0); LYMPH # 2.9 K/mm3 (1.2-3.4); LYMPH % 32.7 % (20.0-51.0); MEAN CELL VOLUME 88 fl (80.0-100.0); MEAN CORPUSCULAR HEMOGLOBIN 31 pg (27.0-31.0); MEAN CORPUSCULAR HGB CONC 35 g/dl (33.0-37.0); MEAN PLATELET VOLUME 9.8 fl (7.4-10.4); MONO # 0.7 K/mm3 (0.1-0.6); MONO % 8.1 % (1.7-9.3); PLATELET COUNT 175 K/mm3 (130-400); RED BLOOD COUNT 4.62 M/mm3 (4.10-5.30)
[2021-09-30 07:31] LABS: CALCIUM 10.1 mg/dL (8.4-10.2); CREATININE, serum 1.9 mg/dL (0.57-1.11); POTASSIUM 3.8 mmol/L (3.5-4.5)
[2021-09-30 08:12] VITALS: BP 117/61; PULSE 91; TEMP 98.7
--- NOTE | 2021-09-30 08:25 | NUR ---
Pt awake ambulating in the room upon entry. No C/O pain at this time. Shift assessment complete, left Pt sitting on edge of bed, call light in reach.
[2021-09-30 11:44] VITALS: BP 149/73; PULSE 79; TEMP 98
[2021-09-30 17:05] VITALS: BP 162/74; PULSE 73; TEMP 97.9
[2021-09-30 22:10] VITALS: BP 161/90; PULSE 73; TEMP 97.5
[2021-09-30 22:23] VITALS: BP 150/56; PULSE 75; TEMP 97.9
[2021-10-01] VITALS (7 sets, daily range): BP systolic 114–145; BP diastolic 51–78; PULSE 65–84; TEMP 97.4–98.2
[2021-10-01 07:18] LABS: CALCIUM 9.1 mg/dL (8.4-10.2); CREATININE, serum 1.4 mg/dL (0.57-1.11)
--- NOTE | 2021-10-01 08:05 | NUR ---
Pt awake upon entry, no C/O pain at this time. Shift assessment complete, set up mbreakfast for Pt. Left Pt sitting up in the bed, call light in reach.
--- NOTE | 2021-10-01 16:05 | NUR ---
Ignition Expert met with patient to discuss discharge planning. Patient lives in [place] and reports her daughter, Shannon lives with her. Patient sees Dr. Gipson for primary care and obtains medications from [facility] with no difficulties. Patient does not use any DME and is independent with ADLS. Patient reports she has completed DPOA-HC which designates her son, Dayton (ph#[phone]) and her daughter in law, Margarette. There is no copy in EMR. Patient plans to return home upon discharge. PT is recommending home. SW contacted patient's son, Mustapha who has no concerns about patient returning home at this time. Discharge Plan: Home
[2021-10-02 05:07] VITALS: BP 121/61; PULSE 74; TEMP 97.6
[2021-10-02 07:12] LABS: CALCIUM 8.9 mg/dL (8.4-10.2); CREATININE, serum 1.15 mg/dL (0.57-1.11); POTASSIUM 4.1 mmol/L (3.5-4.5)
[2021-10-02 07:44] VITALS: BP 122/63; PULSE 75; TEMP 98
--- NOTE | 2021-10-02 08:47 | NUR ---
PT CHARTED BEING ON OXYGEN THERAPY, NO O2 NEEDED THIS SHIFT.
[2021-10-02] MEDS ORDERED: ASPIRIN E.C. 8181 MG PO (09:20)
[2021-10-02 10:27] LABS: CREATININE, serum 1.14 mg/dL (0.57-1.11); FRACTIONAL EXCRETION OF NA+ 2.1 %
--- NOTE | 2021-10-02 10:54 | NUR ---
PT ALERT AND ORIENTED. ABLE TO AMBULATE WITH STAND BY ASSIST. PT HAS TORTUOUS VEINS NOTED IN BILATERAL LOWER EXTREMITIES, DORSALIS PEDIS PULSE 1+. POSTERIOR TIBIAL AND RADIAL PULSES 2+ BILATERAL, CAP REFILL <3S. PT HAS CLEAR LUNGS TO AUSCULTATION. PT CALL LIGHT WITHIN REACH, ABLE TO EXPRESS NEEDS FREELY.
--- NOTE | 2021-10-02 12:33 | NUR ---
PT DISCHARGING. HEALTH SUMMARY AND EDUATION GIVEN TO BEST OF ABILITY. IV DISCONTINUED. PT FAMILY PRESENT AT BEDSIDE.
[2021-10-02 12:43] VITALS: BP 146/72; PULSE 73; TEMP 97.6
--- NOTE | 2021-10-02 12:47 | NUR ---
DISCHARGE VITAL SIGNS OBTAINED, SBP 146. PT WAS UP AMBULATING JUST PRIOR TO BLOOD PRESSURE BEING TAKEN. DISCHARGE INSTRUCTIONS PROVIDED ON MONITORING BLOOD PRESSURE AT HOME VIA PROVIDERS ORDERS.
== END 2021-10-02 13:04 | disposition home or self-care (01) | DRG 682 ==
LOC: COL.ER 19:47 → ICU 09-29 00:22 → MEDICAL 09-29 18:09
PROVIDERS: Internal Medicine; Personal Emergency Response Attendant; ADMIT Student in an Organized Health Care Education/Training Program
DX: N17.9 Acute kidney failure, unspecified (principal); J96.01 Acute respiratory failure with hypoxia; I16.1 Hypertensive emergency; E87.1 Hypo-osmolality and hyponatremia; E87.2 Acidosis; I13.0 Hypertensive heart and chronic kidney disease with heart failure and stage 1 through stage 4 chronic kidney disease, or unspecified chronic kidney disease; N18.30 Chronic kidney disease, stage 3 unspecified; I50.9 Heart failure, unspecified; E11.22 Type 2 diabetes mellitus with diabetic chronic kidney disease; E11.51 Type 2 diabetes mellitus with diabetic peripheral angiopathy without gangrene; I25.10 Atherosclerotic heart disease of native coronary artery without angina pectoris; I70.1 Atherosclerosis of renal artery; Z20.822 Contact with and (suspected) exposure to COVID-19; E78.5 Hyperlipidemia, unspecified; Z95.1 Presence of aortocoronary bypass graft; Z95.5 Presence of coronary angioplasty implant and graft
CPT/HCPCS: OP; 99223-AI; 99231-AI; 99232-AI; 99233-AI; 99239; J0360; J0456; J0696; J1650; J1790; J1940; J2060; J2405; J7030; J7050